=== PATIENT | female | born 1970 | race Caucasian/White ===

== ENCOUNTER 2017-07-22 06:06 | Observation (INO) | payer BC ==
[~2017-07-22] VITALS: Ht 165.1 cm; Wt 109.8 kg
[2017-07-22] MEDS ORDERED: LISINOPRIL5 MG PO (06:21)
[2017-07-22] MEDS ORDERED: METFORMIN HCL500 MG PO (06:21)
[2017-07-22] MEDS ORDERED: GLUCOPHAGE500 MG PO (06:21)
[2017-07-22] MEDS ORDERED: CYMBALTA30 MG PO (06:22)
[2017-07-22] MEDS ORDERED: ESTRADIOL0.5 MG PO (06:22)
[2017-07-22] MEDS ORDERED: XARELTO20 MG PO (06:23)
[2017-07-22] MEDS ORDERED: OMEPRAZOLE20 MG PO (06:23)
[2017-07-22] MEDS ORDERED: TIROSINT100 MCG PO (06:24)
[2017-07-22] MEDS ORDERED: COL-RITE100 MG PO (06:25)
[2017-07-22] MEDS ORDERED: VERAPAMIL HCL360 MG PO (06:25)
[2017-07-22] MEDS ORDERED: FLECAINIDE ACE100 MG PO (07:15)
[2017-07-22] MEDS ORDERED: MELOXICAM15 MG PO (11:55)
--- NOTE | 2017-07-22 11:56 | NUR ---
PT ARRIVED TO FLOOR FROM ED VIA STRETCHER. PT AMB INDEPENDENTY TO HOSPITAL. PT REPORTS MINIMAL PAIN AT THIS TIME BUT STATES IT IS "CREEPING BACK AGAIN." RATES ABD PAIN 3-4/10. IV TO LEFT HAND INTACT, FLUSHES WELL, DRESSING CDI. PT ALERT AND ORIENTED. DENIES NAUSEA. PT EDUCATED ON ROOM, CALL LIGHT, PLAN OF CARE, AND NPO STATUS. VSS. AT BEDSIDE. PT AMB TO RESTROOM WITH SBA, DENIED DIZZINESS OR LIGHT HEADEDNESS. AMB BACK TO BED. SCD'S IN PLACE, CALL LIGHT WITHIN REACH, IV INFUSING WNL.
[2017-07-22] MEDS ORDERED: LEVOTHYROXINE100 MCG PO (11:57)
[2017-07-22] MEDS ORDERED: DULOXETINE HCL60 MG PO (11:58)
--- NOTE | 2017-07-22 11:59 | NUR ---
MED REC COMPLETE WITH [facility] REFILL HISTORY.
--- NOTE | 2017-07-22 12:26 | EKG ---
[facility] [address] [place] [address] Signed Normal sinus rhythm Normal ECG No previous ECGs available Confirmed by FELIPE DUPREE MD ([id number]) on 07/22/2017 12:26:15 PM Electronically Signed By: FELIPE DUPREE MD 07/22/17 1226 PATIENT NAME: DRE IBARRA Electrocardiogram DATE OF : 66 PHYSICIAN: FELIPE DUPREE MD REPORT #: [id number] REPORT IS CONFIDENTIAL AND NOT TO BE RELEASED WITHOUT AUTHORIZATION
--- NOTE | 2017-07-22 14:24 | CONS ---
[facility] [address] [place], [place] [address] Signed DATE OF CONSULTATION: 07/22/17 REFERRING PHYSICIANS: Dr. Carter. CHIEF COMPLAINT: Right upper quadrant abdominal pain. HISTORY OF PRESENT ILLNESS Caty is a 47-year-old, obese female, who developed significant right upper quadrant abdominal pain several hours ago. It is radiating through to her back. It was quite intense. She came into the emergency room for evaluation. She on exam is tender at the right upper quadrant and had an elevated white blood cell count with an elevation of her liver function test. She underwent an ultrasound. She has a 2 cm gallstone impacted in the neck of the gallbladder. There is some wall thickening with a positive Lujan sign. There is no mention of the common bile duct in the report. 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 She has been given antibiotics and pain control and is doing much better. Unfortunately, she is taking Xarelto which she took last night around 10:00 p.m. PAST MEDICAL HISTORY Hypertension, atrial fibrillation, she is a prediabetic, endometriosis, and obesity. PAST SURGICAL HISTORY Full hysterectomy, C-sections x2, right ACL repair, left foot cyst removal. SOCIAL HISTORY She does not smoke, but has a drink once in a while. She is to [employer] at [phone]. 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 Tata Khalil PA-C is her primary care provider. She prefers the [facility]. FAMILY HISTORY: Mom is healthy, but dad has hypertension and diabetes. REVIEW OF SYSTEMS Caty had 10 systems re viewed and really nothing new to add other than endometriosis. ALLERGIES: None. MEDICATIONS Metformin, Lisinopril, Estradiol, Docusate, Omeprazole, Xarelto, Verapamil, and Flecainide. PHYSICAL EXAMINATION VITAL SIGNS: Blood pressure is 132/68, heart rate 84. She is sinus rhythm. Respiratory rate 18, temperature 98.1. She is 99% on room air. She is 5 feet 5 inches, 109 kg exam. GENERAL: Caty is a 47-year-old, obese female, lying supine in her hospital bed. Her Electronically Signed By: OTF LANDRY MD 07/22/17 1424 PATIENT NAME: CATY IBARRA CONSULTATION DATE OF : 66 PHYSICIAN: OTF LANDRY MD REPORT #: [id number] REPORT IS CONFIDENTIAL AND NOT TO BE RELEASED WITHOUT AUTHORIZATION [facility] [address] [place], [place] [address] Signed and parents were in the room. She is not systemically ill or toxic. She is not jaundiced. She is alert and awake and interactive. LUNGS: Clear to auscultation. HEART: Regular rate and rhythm. ABDOMEN: Obese, but soft. She is a little tender to deep palpation in the right upper quadrant. LABORATORY DATA Her white blood cell count 11.1, hemoglobin 8.14, neutrophils 77. BUN 15, creatinine 0.7, glucose 154. Urinalysis negative. Total bilirubin is 1.4, AST 214, ALT 197, alkaline phosphatase 116, albumin is 4. Her lipase is 35. EKG shows normal sinus rhythm. RADIOGRAPHIC STUDIES Ultrasound is performed and she has a 2 cm stone impacted in the neck of the gallbladder. There is a positive Lujan sign with some mild thickening of gallbladder wall. Common bile duct is not mentioned. ASSESSMENT AND PLAN Caty is a 47-year-old prediabetic obese female who presents with a gallstone impacted in the neck of her gallbladder resulting in acute cholecystitis. Unfortunately, she is on Xarelto and we will have to do her surgery tomorrow. I explained to Caty and her family location of function of the gallbladder and the need to do her surgery, but with respect to Xarelto, we will be doing in the morning. In the meantime, we are going to go ahead and let her have some clear liquids along with her medications, pain control, and antibiotics. She has expressed understanding and agrees to the above plan. MD YUDY Frazier/Muralil /[id number] cc: Tata Khalil PA-C Electronically Signed By: OTF LANDRY MD 07/22/17 1424 PATIENT NAME: CATY IBARRA CONSULTATION DATE OF : 66 PHYSICIAN: OTF LANDRY MD REPORT #: [id number] REPORT IS CONFIDENTIAL AND NOT TO BE RELEASED WITHOUT AUTHORIZATION
--- NOTE | 2017-07-22 15:19 | NUR ---
ORDERED CLEAR LIQUID TRAY FOR PT. RAMSES WELL SO FAR, HAS DENIED NAUSEA OR PAIN AT THIS TIME. AT BEDSIDE. CALL LIGHT WITHIN REACH.
--- NOTE | 2017-07-22 15:49 | NUR ---
patient sitting up in bed watching TV. in room. has no needs at this time. call button in reach.
--- NOTE | 2017-07-22 16:47 | NUR ---
PT AMB INDEPENDENTLY TO RESTROOM. MEDICATED WITH IV DIALUDID FOR 4/10 ABD PAIN. CALL LIGHT WITHIN REACH. AT BEDSIDE.
--- NOTE | 2017-07-22 19:00 | NUR ---
IVETTET REPORT RECIEVED. PATIENT IN BED. FAMILY IN ROOM. NO REQUEST AT THIS TIME. CALL LIGHT IN REACH.
--- NOTE | 2017-07-22 20:30 | NUR ---
EVENING MEDS GIVEN PER ORDER. PATIENT RATES PAIN AT 4/10. REQUEST DIET APPROPRIATE SNACKS THAT WERE GIVEN. DISCUSSED OPTIONS FOR PO OR IV PAIN MEDICATION. PATIENT REQUEST PO PAIN MEDICATION AFTER HER SNACK. SHE AGREES TO CALL WHEN SHE IS READY. RUQ OF ABD TENDER. ABD SOFT. BOWEL SOUNDS ACTIVE. LUNG SOUNDS CLEAR THROUGHOUT. SCDS IN PLACE. CONSENT SIGNS, QUESTIONS ANSWERED BY JUAN M TREVINO. CONSENT ON FILE. NO FURTHER REQUEST AT THIS TIME. CALL LIGHT IN REACH. IVF AT 125ML/HR. IV SITE WNL. RT IN ROOM, INSTRUCTED PROPER IS USE.
--- NOTE | 2017-07-22 20:44 | NUR ---
CONSENT SIGNED AND PLACED ON THE FRONT OF THE CHART. ALL QUESTIONS ANSWERED.
--- NOTE | 2017-07-22 21:24 | NUR ---
PATIENT UP TO BATHROOM. SBA TO HELP WITH IV POLE. PATIENT STEADY ON HER FEET. NO DIZZINESS. REPORTS PAIN AT 4/10. DENIES NAUSEA. PATIENT RETURNED TO BED. PRN ORAL PAIN MEDS GIVEN. SCDS ON. CALL LIGHT IN REACH.
--- NOTE | 2017-07-22 22:43 | NUR ---
PATIENT RESTING IN BED. STATES HER PAIN IS "FINE", RATED AT 3/10. PULSE OX 94% ON RA. SCDS IN PLACE. IV SITE WNL. PATIENT DENIES NAUSEA. CALL LIGHT IN REACH.
--- NOTE | 2017-07-23 00:05 | NUR ---
PATIENT RESTING EYES CLOSED. RR 16. PULSE OX, 92% ON RA. CALL LIGHT IN REACH.
--- NOTE | 2017-07-23 00:17 | NUR ---
PATIENT ALERTED STAFF FOR BATHROOM NEEDS. INFORMATICS PHARMACIST ASSISTED.
--- NOTE | 2017-07-23 00:53 | NUR ---
PATIENT RESTING IN BED USING TABLET. STATES PAIN IS TOLERABLE, RATED AT 3/10 IN RUQ. PULSE OX 95% ON RA. SCDS IN PLACE. CALL LIGHT WITHIN REACH.
--- NOTE | 2017-07-23 02:16 | NUR ---
PATIENT UP TO BATHROOM. SBA. STEADY ON HER FEET. PRN PAIN MEDS GIVEN PER PATIENT REQUEST. RUQ PAIN RATED AT 4/10. DIET APPROPRIATE SNACK GIVEN. SCDS IN PLACE. PATIENT BACK TO BED. CALL LIGHT IN REACH. PULSE OX 94% ON RA.
--- NOTE | 2017-07-23 03:00 | NUR ---
PATIENT NPO. FLUIDS/FOOD REMOVED FROM ROOM. SIGN IN PLACE.
--- NOTE | 2017-07-23 03:26 | NUR ---
PATIENT RESTING, EYES CLOSED. RR16. PULSE OX, 92% ON RA.
--- NOTE | 2017-07-23 04:57 | NUR ---
PATIENT RESTED WELL THROUGHOUT THE NIGHT. PRN ORAL PAIN MEDS X2. NO NAUSEA. NPO AT 3AM. LR @ 125ML/HR. PULSE OX WHEN ASLEEP, O2 MAINTAINED >90% ON RA. SBA. OUTPUT QS. SCDS. CONSENT OBTAINED. SURGERY SCHEDULED FOR 0900.
--- NOTE | 2017-07-23 05:53 | NUR ---
PATIENT UP TO BATHROOM. PATIENT ASSESSMENT COMPLETED. ABD SOFT, TENDER, MORE IN RUQ. STATES THAT PAIN IS "OKAY RIGHT NOW". ASKED TO TAKE SCDS OFF FOR A WHILE THIS MORNING. IVF INFUSING PER ORDER. NO NAUSEA. LAB IN ROOM. PATIENT BACK TO BED, SBA.
--- NOTE | 2017-07-23 08:33 | NUR ---
PT OFF FLOOR WITH DULCE RN FOR SURGERY AT 0825. FLAGYL AND CIPRO INFUSED BEFORE SURGERY. IV S/L. LR WITH STRAIGHT TUBING SENT WITH PATIENT. GLASSES IN GLASSES CASE SENT WITH PATIENT WELL.
--- NOTE | 2017-07-23 10:35 | NUR ---
LEFT HAND IV IN PLACE ON ARRIVAL TO PACU, SITE IS [facility].
--- NOTE | 2017-07-23 10:38 | NUR ---
07/23/17 1038 Zackary Do PT SLEEPING AT THIS TIME, SAT 100% ON 6L VIA MASK.
--- NOTE | 2017-07-23 11:05 | NUR ---
LEFT HAND IV REMAINS CDI.
--- NOTE | 2017-07-23 11:25 | NUR ---
PT IN SURGERY, VISITED WITH HER JERI AND OTHER FAMILY MEMBERS. THEY ALL APPEARED TO BE IN THE KNOW ABOUT HER SURGERY-[facility]. EXPLAINED THE ORDER OF EVENTS FOR THEM TODAY, AND WILL BE AVAILABLE NEEDED
[2017-07-23] MEDS ORDERED: NORCO 5-325 TA1 EACH PO (11:35)
--- NOTE | 2017-07-23 12:06 | NUR ---
PT REPORTS 5/10 PAIN IN ABDOMEN. ALSO FEELS A "TIGHT" AREA IN HER THROAT MAKING IT DIFFICULT TO SWALLOW PILLS. PT SIPPING ON WATER. NORCO 2 TABS GIVEN. CONTINUOUS PULSE OX ON TO MONITOR SATS D/T SLEEP APNEA HISTORY. 2.5L [address]
--- NOTE | 2017-07-23 13:45 | NUR ---
PATIENT URINATED 600ML DARK YELLOW URINE. PT TOLERATED CLEAR LIQUIDS. ADVANCING TO PUDDING/JELLO AND ORDERED MASHED POTOATOES AND GRAVY WITH SOUP. VISITORS AT BEDSIDE. PT AMBULATED STEADILY TO BATHROOM.
--- NOTE | 2017-07-23 13:47 | OR ---
[facility] [address] [place], [place] [address] Signed DATE OF PROCEDURE: 07/23/17 PREOPERATIVE DIAGNOSIS: Cholecystitis with cholelithiasis. POSTOPERATIVE DIAGNOSES Cholecystitis with cholelithiasis. Right anterior edge hepatic lesion (hemangioma?) PROCEDURES Laparoscopic cholecystectomy with intraoperative cholangiogram. ESTIMATED BLOOD LOSS: None. FINDINGS Caty had a stone impacted in the neck of the gallbladder. She had a thickened gallbladder wall with edema. An intraoperative cholangiogram was unremarkable. On the anterior edge of the liver just lateral to the gallbladder fossa was a small vascular appearing lesion probably 2-3 cm at most in diameter. Multiple pictures were taken throughout for photo documentation. INDICATIONS Caty is a 47-year-old obese prediabetic female, who came with right upper quadrant abdominal pain radiating through to her back. White count was borderline and her liver function tests were elevated. Lipase was normal. EKG showed normal sinus rhythm. Ultrasound showed the 2 cm stone impacted in the neck of the gallbladder. She had a positive Lujan sign with a thickened gallbladder wall. The common bile duct was not described. 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 We had planned to do her surgery that same day, but she has been on Xarelto for the paroxysmal atrial fibrillation. She has been well controlled on her Verapamil and Flecainide. In fact, she has been normal sinus rhythm for us here in the hospital. We therefore held the Xarelto for just about 36 hours and then plan to do her surgery. I had met with Caty and her family. We discussed the location and function of gal l bladder. We discussed laparoscopic versus open cholecystectomy. They understand the expected intraop and postop course. There is risk including but not limited to bleeding, infection, scarring, change in contour of the skin, damage to bowel, damage to main bile duct, incisional hernias and other unforeseen comorbidities. They had expressed understanding wished to proceed. PROCEDURE NOTE Caty was taken into our operating room and placed in the supine position. She was placed under general endotracheal tube anesthesia. We did give her subcutaneous heparin along with IV antibiotics. SCDs were utilized. She was then prepped and draped in the usual Electronically Signed By: OTF LANDRY MD 07/23/17 1347 PATIENT NAME: CATY IBARRA OPERATIVE REPORT DATE OF : 66 PHYSICIAN: OTF LANDRY MD REPORT #: [id number] REPORT IS CONFIDENTIAL AND NOT TO BE RELEASED WITHOUT AUTHORIZATION [facility] [address] [place], [place] [address] Signed sterile fashion. We placed our trocars in the usual positions under direct visualization of camera without difficulty. We immediately visualized the lesion on the anterior edge of the liver just lateral to the gallbladder fossa. Again multiple pictures were taken for photo documentation throughout the case. After this, the gallbladder was grasped and elevated in the right upper quadrant. The triangle of Calot was dissected free and a clip was placed on a cystic artery and it was divided. After this, the intraoperative cholangiocatheter was inserted into the cystic duct. An intraoperative cholangiogram was unremarkable. The cystic duct stump was secured with a PDS Endoloop and 2 clips were placed on the cystic duct stump to steffanie its location. The gallbladder was then removed from the gallbladder fossa with the help of the cautery and placed into an EndoCatch bag. The right upper quadrant was irrigated and suctioned out until clear. After this, we used our laparoscopic suturing device to pass 0 Vicryl suture on either side of the fascia of the subxiphoid trocar site. This was tied down to close this fascia primarily. After this, all the gas was allowed to escape and the trocars were removed along with the gallbladder. The gallbladder was opened on the back table by our circulating nurse. We could see her significant cholesterolosis. We then closed the fascia of the supraumbilical trocar site with interrupted [id number] and simple 0 Vicryl sutures. Local anesthetic was injected in all trocar sites. Each trocar site was irrigated and suctioned out until clear. The skin and dermis of each trocar site was closed with interrupted 3-0 Monocryl subcuticular suture. Dry gauze and tape was applied to all incisions. Caty was then awakened from anesthesia, extubated in the OR, taken to recovery room in stable condition. MD YUDY Frazier/Elizabeth /[id number] cc: MD Jarvis Schroeder MD Electronically Signed By: OTF LANDRY MD 07/23/17 1347 PATIENT NAME: CATY IBARRA OPERATIVE REPORT DATE OF : 66 PHYSICIAN: OTF LANDRY MD REPORT #: [id number] REPORT IS CONFIDENTIAL AND NOT TO BE RELEASED WITHOUT AUTHORIZATION
--- NOTE | 2017-07-23 14:55 | NUR ---
PT TOLERATED REGULAR DIET. IV DISCONTINUED. PT GETTING DRESSED NOW. WILL BE DISCHARGING SOON.
== END 2017-07-23 15:15 | disposition home or self-care (01) ==
LOC: ED 06:06 → MS 06:08 → ED 09:52 → MS 09:52
PROVIDERS: ADMIT Colon & Rectal Surgery
PROC: BF101ZZ Fluoroscopy of Bile Ducts using Low Osmolar Contrast (ICD-10-PCS; 2017-07-23)
PROC: 0FT44ZZ Resection of Gallbladder, Percutaneous Endoscopic Approach (ICD-10-PCS; principal; 2017-07-23 09:00)
DX: K80.12 Calculus of gallbladder with acute and chronic cholecystitis without obstruction (principal); E03.9 Hypothyroidism, unspecified; I48.0 Paroxysmal atrial fibrillation; R73.03 Prediabetes; E66.9 Obesity, unspecified; K76.89 Other specified diseases of liver; Z68.41 Body mass index [BMI] 40.0-44.9, adult; Z83.79 Family history of other diseases of the digestive system; Z79.01 Long term (current) use of anticoagulants; Z79.84 Long term (current) use of oral hypoglycemic drugs; Z90.710 Acquired absence of both cervix and uterus; Z79.890 Hormone replacement therapy; Z79.899 Other long term (current) drug therapy; Z79.1 Long term (current) use of non-steroidal anti-inflammatories (NSAID)
CPT/HCPCS: 00790; 36415; 74300; 76705; 80053; 81001; 83690; 83735; 84100; 85025; 93005; 93010; 94760; 96361; 96365; 96366; 96372; 96374; 96375; 96376; 99285; G0378; J0330; J0696; J1100; J1170; J1644; J1885; J2250; J2405; J2704; J2710; J2765; J3010; J7030; J7120; Q9967

== ENCOUNTER 2020-05-25 06:30 | Day surgery (SDC) | payer BC, OTHER ==
[~2020-05-25] VITALS: Ht 165.1 cm; Wt 107.5 kg
[~2020-05-25 06:30] MED LIST: COL-RITE100 MG PO; CYMBALTA30 MG PO; DULOXETINE HCL60 MG PO; ESTRADIOL0.5 MG PO; FLECAINIDE ACE100 MG PO; GLUCOPHAGE500 MG PO; LEVOTHYROXINE100 MCG PO; LISINOPRIL5 MG PO; MELOXICAM15 MG PO; METFORMIN HCL500 MG PO; NEURONTIN300 MG PO; NORCO 5-325 TA1 EACH PO; OMEPRAZOLE20 MG PO; TIROSINT100 MCG PO; TIZANIDINE HCL4 MG PO; TRIDERM28.4 GM TOP; ULTRAM50 MG PO; VERAPAMIL HCL360 MG PO; VITAMIN D50000 UNI1 PO; XARELTO20 MG PO
[2020-05-25] MEDS ORDERED: CELECOXIB200 MG PO (08:24)
[2020-05-25] MEDS ORDERED: HYDROCODON-ACE1 EA11 PO (08:25)
--- NOTE | 2020-05-25 08:33 | NUR ---
05/25/20 0833 Amara Richards 0826- PT TO PACU IN SUPINE POSITION. EYES CLOSED WITH ORAL AIRWAY IN PLACE. DOES NOT RESPOND TO VERBAL OR TACTILE STIMULI. SP02 >90% ON 6 L O2 VIA SIMPLE MASK. 0832- PT CONTINUES TO REQUIRE AIRWAY SUPPORT. PT DOES NOT RESPOND TO VERBAL OR TACTILE STIMULI. BREATHING EASY AND UNLABORED SPO2 >90% ON 6 L O2 VIA SIMPLE MASK WITH ORAL AIRWAY IN PLACE. ICE APPLIED TO L KNEE. PERIPHERAL PULSES WELL FELT. VSS.
--- NOTE | 2020-05-25 11:38 | OR ---
[facility] [address] [place], [place] [address] Signed DATE OF OPERATION: 05/25/2020 SURGEON: Joshua Bhatt MD PREOPERATIVE DIAGNOSIS: Medial meniscus tear, left knee. POSTOPERATIVE DIAGNOSIS: Medial meniscus tear, left knee. PROCEDURE PERFORMED: Left knee arthroscopy with partial medial meniscectomy. AIRCRAFT FUSELAGE FRAMER: OTTONIEL Navarro. ANESTHESIA: General. BLOOD LOSS: Minimal. BRIEF HISTORY: Caty is a 50-year-old female with pain and locking in her knee. Most of the pain was medial and was worsened with activity. Risks and benefits of operative treatment were discussed with her and she elected to proceed. DESCRIPTION OF PROCEDURE: Once consent was obtained, she was taken to the operating room after adequate anesthesia. She was placed on operating room table. All downside pressure points were well padded. The right leg was flexed, abducted, and externally rotated on a well-padded leg ramires. The right was placed in well-padded proximal thigh leg ramires. No tourniquet was placed. The leg was then prepped and draped in standard sterile fashion after injecting the portals with 0.25% Marcaine with epinephrine. The leg was then prepped and draped in the standard sterile fashion and the standard inferolateral and superolateral portals were made and the scope was introduced. ARTHROSCOPIC FINDINGS: The patellofemoral joint was intact. There was moderate to significant synovitis in the notch and the medial side. The lateral compartment was intact. The ACL and PCL were Electronically Signed By: JOSHUA BHATT MD 05/25/20 1138 PATIENT NAME: CATY IBARRA OPERATIVE REPORT DATE OF : 66 REPORT #: [id number] PHYSICIAN: JOSHUA BHATT MD PCP: ELVIRA ARCHER PAC REPORT IS CONFIDENTIAL AND NOT TO BE RELEASED WITHOUT AUTHORIZATION [facility] [address] [place], [place] [address] Signed intact. 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 The meniscus showed a complex degenerative tear from mid posterior portion all the way extending to the mid medial side. This was unstable as well. DESCRIPTION OF PROCEDURE: Standard inferomedial portal was made after localization using a spinal needle. The medial portal was then used to debride with straight and curved biters. The shaver was then used to smooth the meniscus and remove all debris. The scope was then withdrawn. Portals were closed with 3-0 nylon and the wounds were dressed with Adaptic, ABD, and Margarito wrap. She tolerated the procedure well. All sponge, needle, and instrument counts were correct. Joshua Bhatt MD BA/CHELSEY /[id number] Copies: ~ Electronically Signed By: JOSHUA BHATT MD 05/25/20 1138 PATIENT NAME: CATY IBARRA OPERATIVE REPORT DATE OF : 66 REPORT #: [id number] PHYSICIAN: JOSHUA BHATT MD PCP: ELVIRA ARCHER PAC REPORT IS CONFIDENTIAL AND NOT TO BE RELEASED WITHOUT AUTHORIZATION
== END 2020-05-25 08:30 | disposition home or self-care (01) ==
LOC: DS 06:30
PROVIDERS: Specialist
PROC: 0SBD4ZZ Excision of Left Knee Joint, Percutaneous Endoscopic Approach (ICD-10-PCS; principal; 2020-05-25 08:00)
DX: M23.322 Other meniscus derangements, posterior horn of medial meniscus, left knee (principal); M65.9 Synovitis and tenosynovitis, unspecified; M94.262 Chondromalacia, left knee; I10 Essential (primary) hypertension; I48.91 Unspecified atrial fibrillation; G47.33 Obstructive sleep apnea (adult) (pediatric); E03.9 Hypothyroidism, unspecified; K21.9 Gastro-esophageal reflux disease without esophagitis; R73.03 Prediabetes; Z99.89 Dependence on other enabling machines and devices; Z79.899 Other long term (current) drug therapy; Z79.84 Long term (current) use of oral hypoglycemic drugs
CPT/HCPCS: 01400; 80048; 85025; A9270; J0690; J1100; J1885; J2001; J2250; J2405; J2704; J2765; J3010; J7121